=== PATIENT | male | born 1950 | race Caucasian/White ===

== ENCOUNTER → 2016-11-27 | Outpatient (CLI) | payer BC | END | disposition home or self-care (01) | LOC: GMAB 10:30 | PROVIDERS: ATTEND Family Medicine | DX: Z12.5 Encounter for screening for malignant neoplasm of prostate (principal); E78.2 Mixed hyperlipidemia ==

== ENCOUNTER → 2017-01-08 | Outpatient (CLI) | payer BC | LOC: GMAB 17:48 | PROVIDERS: ATTEND Family Medicine | DX: R30.0 Dysuria (principal); Z12.5 Encounter for screening for malignant neoplasm of prostate ==

== ENCOUNTER → 2017-04-01 | Outpatient (CLI) | payer MEDICARE, OTHER | END | disposition home or self-care (01) | LOC: GMAB 10:47 | PROVIDERS: ATTEND Family Medicine | DX: R97.20 Elevated prostate specific antigen [PSA] (principal) ==

== ENCOUNTER → 2018-01-14 | Outpatient (CLI) | payer MEDICARE, OTHER ==
--- NOTE | 2018-01-14 12:12 | US ---
EXAM DESCRIPTION: Aorta CLINICAL HISTORY: 67 years Male, AAA COMPARISON: CT abdomen March 21, 2011. Technique: Multiplanar grayscale and Doppler sonographic images of the abdominal aorta obtained. Findings: The proximal aorta measures 2.2 x 3.0 x 3.6 cm. The mid aorta measures 2.1 x 2.1 x 2.1 cm. The distal aorta measures 2.0 x 2.1 x 2.6 cm. The right common iliac measures 1.2 cm and the left common iliac measures 1.1 cm. Impression: The proximal, mid, and distal abdominal aortic diameters measure up to 2.3, 2.1 and a 2.0 cm respectively. No evidence of aneurysmal dilatation. Electronically signed by: Chris Romero MD 01/14/2018 12:11 PM CDT
== END ==
LOC: US 09:32
PROVIDERS: ATTEND Family Medicine
DX: Z12.5 Encounter for screening for malignant neoplasm of prostate (principal); Z13.89 Encounter for screening for other disorder; Z79.899 Other long term (current) drug therapy
CPT/HCPCS: 76775; 84443; G0103

== ENCOUNTER → 2019-04-16 | Outpatient (CLI) | payer MEDICARE, OTHER | LOC: GMAE 10:17 | PROVIDERS: ATTEND Family Medicine | DX: Z12.5 Encounter for screening for malignant neoplasm of prostate (principal); R53.82 Chronic fatigue, unspecified; E78.2 Mixed hyperlipidemia | CPT/HCPCS: 84443; G0103 ==

== ENCOUNTER 2019-04-19 17:35 | Emergency (ER) | payer MEDICARE, OTHER ==
[2019-04-19 17:57] VITALS: TEMP 97.9
--- NOTE | 2019-04-19 19:06 | CT ---
EXAM DESCRIPTION: Lower Extremity CLINICAL HISTORY: 69 years Male hematoma to right hip COMPARISON: None TECHNIQUE: Contiguous axial images of the right hip were obtained followed by reconstruction images. This exam was performed according to our departmental dose-optimization program, which includes automated exposure control, adjustment of the mA and/or kV according to patient size and/or use of iterative reconstruction technique. FINDINGS: There is no acute fracture or dislocation. . There is atherosclerosis. 8.7 cm area of abnormal attenuation within the subcutaneous tissue at the level of the lateral right hip compatible with a hematoma. Focal stranding of the subcutaneous fat compatible with recent contusion. IMPRESSION: No acute fracture or dislocation. Soft tissue hematoma. Electronically signed by: Adalberto Noble MD 04/19/2019 7:04 PM [employer]
--- NOTE | 2019-04-19 19:08 | RAD ---
EXAM DESCRIPTION: Femur,Right CLINICAL HISTORY: trauma COMPARISON: None FINDINGS: Two x-ray views of the right femur were submitted. There is no acute fracture or dislocation. Bone mineralization is within normal limits. There is no radiopaque foreign body material. Focal area of increased opacity within the soft tissues of the lateral proximal femur compatible with a hematoma. IMPRESSION: No acute fracture or dislocation. Electronically signed by: Adalberto Noble MD 04/19/2019 7:06 PM [facility]
--- NOTE | 2019-04-19 19:08 | RAD ---
EXAM DESCRIPTION: Hip,Right 2 Views CLINICAL HISTORY: trauma COMPARISON: None FINDINGS: Two x-ray views of the right hip were submitted. There is no acute fracture or dislocation. Bone mineralization is within normal limits. There is no radiopaque foreign body material. Focal area of increased opacity within the soft tissues of the lateral proximal femur compatible with a hematoma. IMPRESSION: No acute fracture or dislocation. Electronically signed by: Adalberto Noble MD 04/19/2019 7:07 PM [facility]
--- NOTE | 2019-04-19 19:15 | ED.PDOC ---
History of Present Illness - General Chief Complaint: Trauma Stated Complaint: fell off tractor, hip pain Time Seen by Provider: 04/19/19 17:41 - History of Present Illness Initial Comments: pt fell down from the tractor and hurt R hip , having swelling and pain over there Timing/Duration: 1-3 hours Severity: moderate Improving Factors: nothing Worsening Factors: nothing Associated Symptoms: denies symptoms Allergies/Adverse Reactions: Allergies NO KNOWN ALLERGY Allergy (Verified 04/19/19 17:57) Home Medications: Ambulatory Orders Naproxen [Naprosyn] 500 mg PO BID #20 tab 04/19/19 Simvastatin 40 mg PO DAILY 04/19/19 Tamsulosin [Flomax] 0.4 mg PO QD 04/19/19 Review of Systems - Review of Systems Constitutional: States: no symptoms reported EENTM: States: no symptoms reported Respiratory: States: no symptoms reported Cardiology: States: no symptoms reported Gastrointestinal/Abdominal: States: no symptoms reported Genitourinary: States: no symptoms reported Musculoskeletal: States: no symptoms reported Skin: States: see HPI Neurological: States: no symptoms reported Endocrine: States: no symptoms reported Hematologic/Lymphatic: States: no symptoms reported Past Medical History (General) - Patient Medical History Hx Cancer: No - Vaccination History Hx Tetanus, Diphtheria Vaccination: Yes Hx Influenza Vaccination: No Hx Pneumococcal Vaccination: No Immunizations Up to Date: No - Social History Hx Tobacco Use: No Hx Alcohol Use: No Hx Substance Use: No Hx Substance Use Treatment: No Hx Depression: No Family Medical History - Family History Mother Family History: Unknown Living Status: Physical Exam - Physical Exam General Appearance: Alert, Comfortable Ears, Nose, Throat: hearing grossly normal, normal ENT inspection Neck: full range of motion, supple, normal inspection Respiratory: lungs clear, normal breath sounds, no respiratory distress, no accessory muscle use Cardiovascular/Chest: regular rate, rhythm Back Exam: normal inspection Extremity: normal range of motion, no pedal edema, no calf tenderness, other - swlling over the lateral aspect of the R hip Neurologic: no motor/sensory deficits, alert, normal mood/affect, oriented x 3 Skin Exam: normal color Lymphatic: no adenopathy Progress - EKG/XRAY/CT CT Ordered: Yes Departure - Departure Clinical Impression: Hematoma of leg, Injury of hip and thigh Time of Disposition: 19:16 Disposition: Discharge to Home or Self Care Condition: Good Departure Forms: ED Discharge - Pt. Copy, Patient Portal Self Enrollment Diet: resume usual diet Activity: increase activity as tolerated, walking as tolerated Referrals: JONAS JIMENEZ MD [Primary Care Provider] - 1-2 Weeks Prescriptions: Naproxen [Naprosyn] 500 mg PO BID #20 tab Home Medications: Ambulatory Orders Naproxen [Naprosyn] 500 mg PO BID #20 tab 04/19/19 Simvastatin 40 mg PO DAILY 04/19/19 Tamsulosin [Flomax] 0.4 mg PO QD 04/19/19
[2019-04-19] MEDS ORDERED: KETOROLAC TROMETHAMINE INJ 30 MG/ML VIAL IM ONE (19:18)
[2019-04-19 19:32] VITALS: BP 129/97; O2SAT 98
== END 2019-04-19 19:32 | disposition home or self-care (01) ==
LOC: ER 17:35
DX: S70.01XA Contusion of right hip, initial encounter (principal); S79.921A Unspecified injury of right thigh, initial encounter; W17.89XA Other fall from one level to another, initial encounter; Y92.9 Unspecified place or not applicable
CPT/HCPCS: 36415; 73502; 73551; 73700; 80053; 85025; J1885

== ENCOUNTER → 2020-05-16 | Outpatient (CLI) | payer MEDICARE, OTHER ==
--- NOTE | 2020-05-16 14:02 | MRI ---
Study: MRI of the Right Shoulder. Indication: pain in right shoulder Technique: Multiplanar, multi sequence MRI of the right shoulder was obtained without intravenous contrast. Comparison: None. Findings: Severe hypertrophic AC joint osteoarthritis with prominent undersurface spurring. Type I acromion. Full-thickness, fullwidth supraspinatus and infraspinatus tendon tearing with retraction of torn tendon fibers medial to the glenoid. High grade articular tearing superior two thirds subscapularis tendon. Mild atrophy and grade 1 fatty infiltration rotator cuff musculature. Long head biceps tendinosis and longitudinal split tearing with medial subluxation onto lesser tuberosity. Circumferential truncation and degeneration. Grade 4 chondrosis and subchondral cystic change anterior inferior glenoid with additional areas of grade 2 and 3 chondral loss of the joint space. Moderate-sized joint effusion with scattered synovitis/debris. No acute fracture. Mild intramuscular edema infraspinatus muscle belly. Impression: Full-thickness, fullwidth retracted supraspinatus and infraspinatus tendon tearing with high-grade articular tearing superior subscapularis tendon. Mild atrophy and grade 1 fatty infiltration rotator cuff musculature. Long head biceps tendinosis and longitudinal split tearing with medial subluxation. Circumferential labral truncation and degeneration. Mild to moderate glenohumeral joint osteoarthritis with moderate-sized joint effusion. Severe hypertrophic AC joint osteoarthritis. Electronically signed by: Sebastien Blount MD 05/16/2020 2:00 PM [employer]
== END ==
LOC: MRI 09:40
PROVIDERS: ATTEND Family Medicine Sports Medicine
DX: M75.101 Unspecified rotator cuff tear or rupture of right shoulder, not specified as traumatic (principal); S46.111A Strain of muscle, fascia and tendon of long head of biceps, right arm, initial encounter; M62.511 Muscle wasting and atrophy, not elsewhere classified, right shoulder; M75.21 Bicipital tendinitis, right shoulder; S43.431A Superior glenoid labrum lesion of right shoulder, initial encounter; M19.011 Primary osteoarthritis, right shoulder; M25.411 Effusion, right shoulder

== ENCOUNTER → 2020-05-24 | Outpatient (CLI) | payer MEDICARE, OTHER | LOC: GMAE 10:40 | PROVIDERS: ATTEND Family Medicine | DX: Z12.5 Encounter for screening for malignant neoplasm of prostate (principal); I10 Essential (primary) hypertension; E78.2 Mixed hyperlipidemia | CPT/HCPCS: 84443; G0103 ==